=== PATIENT | male | born 1980 | race Caucasian/White ===

== ENCOUNTER 2025-01-27 13:25 | Day surgery (SDC) | payer BC, SELFPAY ==
[2025-01-27] VITALS (12 sets, daily range): BP systolic 111–144; BP diastolic 86–101; PULSE 70–79; RESP 12–21; TEMP 36.6–36.9; O2SAT 93–99; BMI 46.0
[2025-01-27] MEDS: SODIUM CHLORIDE 0.9% 500 ML 500 ML 20 ML IV (14:38)
[2025-01-27] MEDS: MIDAZOLAM INJ 1 MG/ML VIAL 2 ML (ASD USE ONLY) 2 MG IVP (14:48)
[2025-01-27] MEDS: fentaNYL CIT INJ 50 mCg/ML AMP 2ML (ASD USE ONLY) IVP (14:48)
== END 2025-01-27 15:50 | disposition home or self-care (01) ==
PROVIDERS: PCP Family Medicine; Referring Provider Internal Medicine Gastroenterology; Visit Provider Internal Medicine Gastroenterology
PROC: 0DBE8ZX Excision of Large Intestine, Via Natural or Artificial Opening Endoscopic, Diagnostic (ICD-10-PCS; CPT 45380; principal; 2025-01-27 14:30)
DX: Z12.11 Encounter for screening for malignant neoplasm of colon (principal); D12.3 Benign neoplasm of transverse colon; K52.9 Noninfective gastroenteritis and colitis, unspecified; K64.9 Unspecified hemorrhoids; K57.30 Diverticulosis of large intestine without perforation or abscess without bleeding
CPT/HCPCS: 45385; 45380; J2250; J3010; J7040

== ENCOUNTER 2025-03-06 10:30 | Emergency (ER) | payer BC, SELFPAY ==
[2025-03-06 10:30] VITALS: BMI 46.0
[2025-03-06 10:47] VITALS: BP 133/83; PULSE 103; RESP 20; TEMP 38.8; O2SAT 97
--- NOTE | 2025-03-06 10:56 | PD.EDRME ---
Rapid Medical Screening Exam RME Arrival date/time: 03/06/25 10:30 45-year-old male with no known medical history presents to the emergency room with a chief complaint of urinary retention that began this morning as well as a fever and dysuria I have greeted and performed a focused initial assessment of this patient. A comprehensive ED assessment and evaluation of the patient, analysis of all test results, and completion of the medical decision making process will be conducted by additional ED providers. Chief Complaint: General Adult/Misc Complain Time Seen by Provider: 03/06/25 10:35 Vital signs: Vital Signs Temperature 101.9 F H 03/06/25 10:47 Pulse Rate 103 H 03/06/25 10:47 Respiratory Rate 20 03/06/25 10:47 Blood Pressure 133/83 H 03/06/25 10:47 Pulse Oximetry (%) 97 03/06/25 10:47 Oxygen Delivery Method Room Air 03/06/25 10:47 Vital signs reviewed by provider: Yes
[2025-03-06] MEDS: ONDANSETRON ODT 4 MG TABRAP PO (11:02)
[2025-03-06] MEDS: TAMSULOSIN HCL 0.4 MG CAPSULE PO (11:02)
[2025-03-06] MEDS: IBUPROFEN TAB 400 MG TABLET 800 MG PO (11:02)
[2025-03-06 11:30] LABS: Lactate (Lactic Acid) 1.4 mMol/L (0.4-2.0)
[2025-03-06 11:39] LABS: Basophils # (Auto) 0.0 Thou/mm3 (0.0-0.2); Basophils % (Auto) 0 % (0-2.5); Eosinophils # (Auto) 0.0 Thou/mm3 (0.0-0.5); Eosinophils % (Auto) 0 % (0-10); Hematocrit 43.0 % (41.0-53.0); Hemoglobin 14.7 g/dL (13.5-16.0); Immature Granulocytes Auto 0.05 Thou/mm3 (0.00-0.00); Lymphocytes # (Auto) 1.8 Thou/mm3 (1.0-4.8); Lymphocytes % (Auto) 12 % (10-50); Mean Corpuscular HGB Conc 34.2 g/dl (31.0-37.0); Mean Corpuscular Hemoglobin 28.7 pg (25.0-35.0); Mean Corpuscular Volume 84 fL (80-100); Monocytes # (Auto) 1.3 Thou/mm3 (0.0-0.8); Monocytes % (Auto) 8 % (0-12); Neutrophils # (Auto) 12.1 Thou/mm3 (1.8-7.7); Neutrophils % (Auto) 80 % (37-80); Nucleated Red Blood Cell # 0.00 Thou/mm3 (0.00-0.00); Nucleated Red Blood Cell % 0 /100 WBC (0); Platelet Count 181 Thou/mm3 (140-440); RDW Standard Deviation 40.8 fL (35.1-43.9); Red Blood Count 5.12 Miln/mm3 (4.50-5.90); White Blood Count 15.2 Thou/mm3 (3.8-10.6)
[2025-03-06 11:43] LABS: Collection Type, Urine Clean Catch
[2025-03-06 11:57] LABS: Alanine Aminotransferase 13 U/L (10-49); Albumin, Serum 4.6 gm/dL (3.5-5.0); Albumin/Globulin Ratio 1.6 (1.2-2.2); Alkaline Phosphatase 89 U/L (46-116); Anion Gap 8 (7-16); Aspartate Amino Transferase 14 U/L (0-34); BUN/Creatinine Ratio 8 Ratio (12-20); Bilirubin,Total 0.9 mg/dL (0.3-1.2); Blood Urea Nitrogen 9 mg/dL (9-23); Calcium 9.4 mg/dL (8.3-10.6); Calcium (Corrected) 9.4 mg/dL (8.5-10.1); Carbon Dioxide 26.8 mMol/L (20.0-31.0); Chloride 103 mMol/L (98-107); Creatinine (Component) 1.2 mg/dL (0.6-1.3); Estimated Creatinine Clearance 116.7 mL/min (>60); Globulin 2.9 gm/dL (2.3-3.5); Glucose 101 mg/dL (74-106); Lipase 27 U/L (12-53); Osmolality,Calculated 274 (275-295); Potassium 4.2 mMol/L (3.4-5.1); Procalcitonin 0.06 ng/ml (0.0-0.49); Sodium 138 mMol/L (136-145); Total Protein 7.5 gm/dL (5.7-8.2); eGFR > 60 See Note
[2025-03-06 12:02] VITALS: TEMP 37.4
[2025-03-06 12:05] LABS: Bilirubin,Urine Negative (Negative); Blood,Urine Trace (Negative); Color,Urine Lt-Yellow (Lt Yel-Yel); Glucose, Urine Negative (Negative); Ketones,Urine Negative (Negative); Leukocyte Esterase,Urine Positive (Negative); Nitrite,Urine Negative (Negative); PH,Urine 6.0 (5.0-7.0); Protein,Urine Negative (Neg - Trace); RBC,Urine 6 /hpf (0-3); Specific Gravity,Urine 1.019 (1.001-1.035); Squamous Epithelial Cell,Urine 1 /hpf (0-5); Urobilinogen,Urine Negative mg/dL (0.0-1.0); WBC,Urine 58 /hpf (0-5)
[2025-03-06 12:09] LABS: Clarity,Urine Hazy (Clear/Hazy)
[2025-03-06 12:28] VITALS: BP 127/86; PULSE 98; RESP 20; TEMP 37.4; O2SAT 95
--- NOTE | 2025-03-06 13:02 | EKG_ITS ---
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
--- NOTE | 2025-03-06 13:03 | XR_ITS ---
Examination: AP chest single view Technique one AP portable semiupright chest single view Date and time: March 06, 2025, 1323 hrs., Comparison February 21, 2023 Indications: Shortness of breath sepsis today Findings: Mild enlargement cardiac contour. No lobar pneumonia. No pulmonary edema. Mild osteopenia. Impression: No lobar pneumonia
--- NOTE | 2025-03-06 13:08 | EDNOTE_ITS ---
ED Male Genitalurinary RME/HPI General Chief complaint: General Adult/Misc Complain Stated complaint: UNABLE TO URINATE X 2 DAYS, FEVER Time Seen by Provider: 03/06/25 10:35 Arrival date/time: 03/06/25 10:30 Limitations: no limitations RME / HPI RME / HPI Narrative: 03/06/25 10:30 45-year-old male with no known medical history presents to the emergency room with a chief complaint of urinary retention that began this morning as well as a fever and dysuria I have greeted and performed a focused initial assessment of this patient. A comprehensive ED assessment and evaluation of the patient, analysis of all test results, and completion of the medical decision making process will be conducted by additional ED providers. DR. CHAPARRO SMART ED EVALUATION 45 year old male presents to the ED for evaluation of urinary hesitancy and dysuria beginning 2 days ago. Accompanied by fevers and chills beginning today. Denies any history of similar symptoms or known history. Denies back pain or blood in urine. No known modifying factors at home. Related Data Previous Rx's ?Medication ?Instructions ?Recorded acetaminophen 500 mg capsule 1,000 mg (2 x 500 mg) PO Q6H PRN 03/06/25 fever or pain #30 caps cephalexin 500 mg capsule 500 mg PO BID uti 7 days #14 caps 03/06/25 ibuprofen 600 mg tablet 600 mg PO Q6H PRN fever or p ain 5 03/06/25 days #20 tabs phenazopyridine 200 mg tablet 200 mg PO TID UTI/dysuri a 6 doses 03/06/25 (Pyridium) #6 tabs Allergies Allergy/AdvReac Type Severity Reaction Status Date / Time No Known Allergies Allergy Verified 03/06/25 10:32 Review of Systems Review of Systems Systems Reviewed: All systems reviewed, normal except as documented Past Medical History Past Medical History NEUROLOGIC: Positive Migraine CARDIAC: Positive Hypertension RESPIRATORY: Positive Sleep Apnea (cpap daily) GASTROINTESTINAL: Positive Gastroesophageal Reflux Disease MUSCULOSKELETAL: Positive Gout PSYCHO/SOCIAL: Positive Depression Social History SMOKING STATUS: Former smoker ED Exam General Limitations: Present no limitations General appearance: Present alert and in no apparent distress Head Head exam: Present atraumatic, normocephalic and normal inspection Eye Eye exam: Present normal appearance, PERRL and EOMI ENT ENT exam: Present normal exam, normal oropharynx and mucous membranes moist Neck Neck exam: Present normal inspection, full ROM and trachea midline Chest Chest inspection: Present normal inspection and symmetric chest wall rise Respiratory Respiratory exam: Present normal lung sounds bilaterally Cardiovascular Cardiovascular exam: Present regular rate, normal rhythm and normal heart sounds Abdominal Exam Abdominal exam: Present soft and normal bowel sounds Extremities Exam Extremities exam: Present normal inspection and full ROM Back Exam Back exam: Present normal inspection and full ROM Neurological Exam Neurological exam: Present alert, oriented X3 and CN II-XII intact Psychiatric Psychiatric exam: Present normal affect and normal mood Skin Skin exam: Present warm, dry, intact and normal color Course Quality Measures none Orders Category Date Time Status Cured Meats Supervisor STAT Care 03/06/25 13:02 Completed Continuous Pulse Oximetry STAT Care 03/06/25 13:02 Completed Adame [Urinary Catheter] QS Care 03/06/25 10:55 Completed NPO STAT Care 03/06/25 13:02 Completed Strict Intake and Output Routine Care 03/06/25 13:02 Ordered EKG (ED Only) Stat Exams 03/06/25 13:02 Draft XR chest 1V portable Stat Exams 03/06/25 13:03 Completed Blood Culture (Lab) Stat Lab 03/06/25 11:08 Received CBC Stat Lab 03/06/25 11:08 Completed CMP [Comprehensive Metabolic Panel] Stat Lab 03/06/25 11:08 Completed Lactate (Lactic Acid) Stat Lab 03/06/25 11:08 Completed Lipase Stat Lab 03/06/25 11:08 Completed Procalcitonin Stat Lab 03/06/25 11:08 Completed UA [Urinalysis] Stat Lab 03/06/25 11:09 Completed Urine Culture Stat Lab 03/06/25 11:09 Received HYDROcodone*/APAP 5/325 [[place] 5/325] Med 03/06/25 10:55 Discontinued 1 tab PO X1 ONE Ibuprofen Tab [Motrin Tab] Med 03/06/25 10:56 Discontinued 800 mg PO X1 ONE Ondansetron Odt [Zofran Odt] Med 03/06/25 10:55 Discontinued 4 mg PO X1 ONE Phenazopyridine HCl [Pyridium] Med 03/06/25 13:16 Discontinued 100 mg PO X1 ONE Tamsulosin HCl [Flomax] Med 03/06/25 10:55 Discontinued 0.4 mg PO X1 ONE cefTRIAXone [Rocephin] 1,000 mg Med 03/06/25 13:16 Discontinued Lidocaine 1% 20 ml [Xylocaine 1% 20 ML] 2.1 ml IM X1 Oxygen Delivery NOW RT 03/06/25 13:02 Completed Reevaluation(s) Reevaluation #1: Patient remains clinically stable throughout the emergency department visit. We reviewed all the results, analysis, and treatment plans. Patient is amenable to discharge. Strict return precautions were outlined. Patient was discharged in stable condition. Time: 13:26 Vital Signs Vital signs: Vital Signs Temperature 101.9 F H 03/06/25 10:47 Pulse Rate 103 H 03/06/25 10:47 Respiratory Rate 20 03/06/25 10:47 Blood Pressure 133/83 H 03/06/25 10:47 Pulse Oximetry (%) 97 03/06/25 10:47 Oxygen Delivery Method Room Air 03/06/25 10:47 Pulse ox is 97% on room air which is adequate. Urogenital - Male MDM Narrative MDM Narrative:: Meghan Nick am scribing for and in the presence of Dr. Chi. Patient data External records reviewed:: [facility] previous records (I reviewed ED visit on 02/21/2023 for headache ) Clinical information provided by:: patient Social determinants that could affect healthcare access:: none Patient has the following chronic illnesses:: None reported How is presenting disease/condition affected by chronic disease/condition?: no chronic disease Evaluation data The following diagnostics were reviewed and interpreted by me:: lab results, radiology exam(s) and EKG tracing(s) (13:18 PM. NSR, rate 71, normal axis, no ectopy, no acute ischemia. ) Lab and/or radiology exams considered but not ordered:: None Interpretation Summary: UA positive for infection Medications / Prescriptions Medications or Prescriptions considered but not ordered:: None Medication administrations:: Medication Administration History Discontinued Medications Hydrocodone Bitart/Acetaminophen (Hydrocodone/Apap 5/325 Tablet) 1 tab PO X1 ONE Stop: 03/06/25 10:56 Last Admin: 03/06/25 11:03 Dose: Not Given Documented By: JAYLA Non-Admin Reason: Patient Refused Ceftriaxone Sodium 1,000 mg/ (Lidocaine HCl 2.1 ml) 0 mg IM X1 ONE Stop: 03/06/25 13:17 Last Admin: 03/06/25 14:14 Dose: 1,000 mg Documented By: ANTONIO Ibuprofen (Ibuprofen Tab 400 Mg Tablet) 800 mg PO X1 ONE Stop: 03/06/25 10:57 Last Admin: 03/06/25 11:02 Dose: 800 mg Documented By: JAYLA Ondansetron HCl (Ondansetron Odt 4 Mg Tabrap) 4 mg PO X1 ONE; Protocol Stop: 03/06/25 10:56 Last Admin: 03/06/25 11:02 Dose: 4 mg Documented By: JAYLA Phenazopyridine HCl (Phenazopyridine Hcl 100 Mg Tablet) 100 mg PO X1 ONE Stop: 03/06/25 13:17 Last Admin: 03/06/25 14:13 Dose: 100 mg Documented By: ANTONIO Tamsulosin HCl (Tamsulosin Hcl 0.4 Mg Capsule) 0.4 mg PO X1 ONE Stop: 03/06/25 10:56 Last Admin: 03/06/25 11:02 Dose: 0.4 mg Documented By: JAYLA See above Consultations Consultation(s) initiated? (list below): No Diagnosis Urogenital Male Differential Diagnosis: urinary tract infection, prostatitis and acute retention of urine Most likely diagnosis given after review of the tests above:: UTI Admission Indicated Admission indicated?: not indicated Admission Request Was there a request for admission?: No Disposition Plan Disposition Plan: Discharge Discharge Attestation Discharge Attestation: The patient and all family members were given an opportunity to ask questions and understood the discharge instructions. Discharge instructions specifically effects, indications for sooner follow up or return to the emergency department, and the expected course of current diagnosis. Patient condition: Stable Discharge Plan Plan Patient Disposition: HOME (Self Care) Discharge Disposition comment: stable to discharge home Patient condition on transfer: Stable Prescriptions/Referrals Prescriptions/Med Rec: New cephalexin 500 mg capsule 500 mg PO BID 7 Days Qty: 14 0RF phenazopyridine [Pyridium] 200 mg tablet 200 mg PO TID Qty: 6 0RF acetaminophen 500 mg capsule 1,000 mg PO Q6H PRN (Reason: fever or pain) Qty: 30 0RF ibuprofen 600 mg tablet 600 mg PO Q6H PRN (Reason: fever or pain) 5 Days Qty: 20 0RF Referrals: Jena Billy MD [Primary Care Provider] - In 1 week Problem List Clinical Impression: Urinary tract infection, Urinary tract infection in male Patient/Caregiver Discharge Instructions Discharge Activity: activity as tolerated Education Materials: ED Bladder Infection, Male (Adult) Additional Instructions: Please return to the emergency department if you have any worsening or any further medical problems we will help you. Otherwise you should follow-up with your primary care doctor within the next several days. There are 4 medications waiting for you at the pharmacy. One of them is your antibiotic, called cephalexin. You should take this antibiotic twice per day for the full 7 days even if you are feeling better before that. There is a second medication called Pyridium. That medication is the one that will numb your bladder and get rid of your symptoms, however it will turn your urine a dark orange or red. This is not troublesome or dangerous. The other 2 medications are acetaminophen and ibuprofen. You should use these for pain and/or fevers. You should specifically look for back pain, especially lower back pain on one side or the other, abdominal pain, feeling lightheaded or weak or becoming sweaty or any other worsening which will be your sign that you need to return to the ER right away Print Language: [place]serratian Stand Alone Forms: Sharda Award Info., Patient Portal Info Letter
[2025-03-06 13:30] VITALS: PULSE 95; RESP 19; RESP 98
[2025-03-06] MEDS: PHENAZOPYRIDINE HCL 100 MG TABLET PO (14:13)
[2025-03-06] MEDS: cefTRIAXone 1,000 MG, LIDOCAINE 1% 20 ML 2.1 ML IM (14:14)
[2025-03-06 14:38] VITALS: BP 126/74; PULSE 95; RESP 19; TEMP 37.2; O2SAT 98
== END 2025-03-06 14:41 | disposition home or self-care (01) ==
PROVIDERS: Nurse Practitioner Family; Emergency Provider Emergency Medicine; PCP Family Medicine
DX: N39.0 Urinary tract infection, site not specified (principal)
CPT/HCPCS: 51702; 36415; 71045; 80053; 81001; 83605; 83615; 83690; 83735; 83880; 84100; 84145; 84484; 85025; 85610; 85730; 87040; 87086; 96372; 99284; J0696; J3490; Q0162; A9270

== ENCOUNTER → 2025-03-28 | Outpatient (CLI) | payer BC, SELFPAY ==
[2025-03-28 15:16] LABS: Collection Type, Urine Clean Catch
[2025-03-28 16:31] LABS: Bilirubin,Urine Negative (Negative); Blood,Urine Negative (Negative); Clarity,Urine Clear (Clear/Hazy); Color,Urine Lt-Yellow (Lt Yel-Yel); Glucose, Urine Negative (Negative); Ketones,Urine Negative (Negative); Leukocyte Esterase,Urine Negative (Negative); Nitrite,Urine Negative (Negative); PH,Urine 6.0 (5.0-7.0); Protein,Urine Negative (Neg - Trace); RBC,Urine 6 /hpf (0-3); Specific Gravity,Urine 1.016 (1.001-1.035); Squamous Epithelial Cell,Urine < 1 /hpf (0-5); Urobilinogen,Urine Negative mg/dL (0.0-1.0); WBC,Urine 1 /hpf (0-5)
== END | disposition home or self-care (01) ==
LOC: SLDO 14:35
PROVIDERS: PCP Registered Nurse; Referring Provider Registered Nurse; Visit Provider Registered Nurse
DX: R36.1 Hematospermia (principal); R10.2 Pelvic and perineal pain
CPT/HCPCS: 81001; 87086

== ENCOUNTER → 2025-03-28 | Outpatient (CLI) | payer BC, SELFPAY ==
--- NOTE | 2025-03-28 10:18 | XR_ITS ---
Examination: Testicular sonography complete TECHNIQUE: Grayscale sonographic images testes, assessment arterial inflow venous outflow Doppler spectral analysis carful analysis Date and time: March 28, 2025 1038 hours INDICATIONS: Hematospermia beginning 2 weeks ago FINDINGS: Right testis 5.0 cm epididymis 16mm Arterial flow testicle. No testicular mass Scrotal wall thickness 4 mm Mild hydrocele Left testis 4.7 cm epididymis 3.5 cm Arterial flow testicle. No testicular mass Scrotal wall thickness 4 mm Mild hydrocele IMPRESSION: No testicular torsion or testicular mass Bilateral epididymitis
== END | disposition home or self-care (01) ==
PROVIDERS: PCP Registered Nurse; Referring Provider Registered Nurse; Visit Provider Registered Nurse
DX: N45.1 Epididymitis (principal)
CPT/HCPCS: 76870

== ENCOUNTER → 2025-04-01 | Outpatient (CLI) | payer BC, SELFPAY ==
[2025-04-02 10:25] LABS: Chlamydia trachomatis PCR Negative (Not Detect); Neisseria Gonorrhoeae DNA PCR Negative (Not Detect); Trichomonas Negative (Negative)
== END | disposition home or self-care (01) ==
LOC: SLDO 15:16
PROVIDERS: PCP Family Medicine; Referring Provider Registered Nurse; Visit Provider Registered Nurse
DX: Z11.3 Encounter for screening for infections with a predominantly sexual mode of transmission (principal)
CPT/HCPCS: 87491; 87591; 87661

== ENCOUNTER → 2025-07-07 | Outpatient (BNVA) | payer BC, SELFPAY | END | disposition home or self-care (01) | PROVIDERS: PCP Family Medicine; Referring Provider Family Medicine; Visit Provider Urology | DX: R36.1 Hematospermia (principal); N40.1 Benign prostatic hyperplasia with lower urinary tract symptoms; N13.8 Other obstructive and reflux uropathy; R35.0 Frequency of micturition; G47.33 Obstructive sleep apnea (adult) (pediatric); E66.9 Obesity, unspecified; Z68.42 Body mass index [BMI] 45.0-49.9, adult; Z87.891 Personal history of nicotine dependence | CPT/HCPCS: 99212; G0463 ==